=== PATIENT | female | born 1945 | race Caucasian/White ===

== ENCOUNTER → 2019-05-14 | Outpatient (CLI) | payer OTHER ==
--- NOTE | 2019-05-14 15:57 | REP ---
Two-view chest: 05/14/2019. Indication: Dyspnea. Comparison: None. Findings: The lungs are clear. There is no pleural effusion or pneumothorax. The cardiac silhouette is unremarkable. Impression: Clear lungs. Electronically Signed by Mario Shane DO 05/14/2019 03:48 P
[2019-05-14 20:20] LABS: BASO # 0.1 10^3/uL (0.0-0.2); BASO % 0.6 % (0.0-1.0); EOS # 0.1 10^3/uL (0.0-0.5); EOS % 1.3 % (0.0-3.0); HEMOGLOBIN 13.6 g/dl (12.0-15.5); LYMPH # 1.8 10^3/uL (1.5-5.0); LYMPH % 23.5 % (24.0-44.0); MEAN CORPUSCULAR HEMOGLOBIN 29.9 pg (27.0-33.0); MEAN CORPUSCULAR HGB CONC 32.4 g/dl (32.0-36.5); MEAN CORPUSCULAR VOLUME 92.3 fl (80.0-96.0); MONO # 0.5 10^3/uL (0.0-0.8); MONO % 6.4 % (0.0-5.0); NEUTROPHILS # 5.3 10^3/uL (1.5-8.5); NEUTROPHILS % 67.9 % (36.0-66.0); PLATELET COUNT, AUTOMATED 265 10^3/uL (150-450); RED BLOOD COUNT 4.55 10^6/uL (4.00-5.40); WHITE BLOOD COUNT 7.8 10^3/uL (4.0-10.0)
[2019-05-14 20:24] LABS: ALBUMIN 3.8 GM/DL (3.2-5.2); ALT/SGPT 21 U/L (12-78); BILIRUBIN,DIRECT 0.1 MG/DL (0.0-0.2); BILIRUBIN,TOTAL 0.5 MG/DL (0.2-1.0); BLOOD UREA NITROGEN 13 MG/DL (7-18); CALCIUM LEVEL 9.3 MG/DL (8.8-10.2); CARBON DIOXIDE LEVEL 36 MEQ/L (21-32); CHLORIDE LEVEL 99 MEQ/L (98-107); CREATININE FOR GFR 0.69 MG/DL (0.55-1.30); GLOMERULAR FILTRATION RATE > 60.0 (>39); GLUCOSE, FASTING 91 MG/DL (70-100); PHOSPHORUS LEVEL 3.6 MG/DL (2.5-4.9); POTASSIUM SERUM 3.9 MEQ/L (3.5-5.1); SODIUM LEVEL 139 MEQ/L (136-145); TOTAL PROTEIN 7.3 GM/DL (6.4-8.2)
== END ==
LOC: M WUC 15:38
PROVIDERS: ATTEND Nurse Practitioner Family
DX: L40.0 Psoriasis vulgaris (principal); Z79.899 Other long term (current) drug therapy; Z51.81 Encounter for therapeutic drug level monitoring

== ENCOUNTER → 2019-09-03 | Outpatient (REF) | payer OTHER | LOC: M LAB REF 16:12 | PROVIDERS: ATTEND Ophthalmology | DX: H02.839 Dermatochalasis of unspecified eye, unspecified eyelid (principal) ==

== ENCOUNTER → 2021-05-27 | Outpatient (REF) | payer MEDICARE, OTHER | LOC: M LAB REF 18:31 | PROVIDERS: ATTEND Internal Medicine Endocrinology, Diabetes & Metabolism | DX: E05.20 Thyrotoxicosis with toxic multinodular goiter without thyrotoxic crisis or storm (principal) ==

== ENCOUNTER → 2022-02-21 | Outpatient (CLI) | payer MEDICARE, OTHER | LOC: M WUC 11:13 | PROVIDERS: ATTEND Nurse Practitioner Family | DX: L40.0 Psoriasis vulgaris (principal) ==

== ENCOUNTER → 2023-02-08 | Outpatient (CLI) | payer MEDICARE, OTHER | LOC: M WUC 14:17 | PROVIDERS: ATTEND Nurse Practitioner Family | DX: L40.0 Psoriasis vulgaris (principal) ==